=== PATIENT | female | born 1990 | race Caucasian/White ===

== ENCOUNTER 2022-01-16 17:34 | Emergency (ER) | payer SELFPAY ==
--- OUTSIDE RECORDS SUMMARY | 2022-01-16 17:38 | XMS REPORT | Continuity of Care Document ---
:1990 Author Organization [facility] t Address [address] [place] [address] Care Team Providers Name Role Phone Asked, No Pcp Primary Care Physician Unavailable Tyler Fitzgerald Attending Clinician Unavailable ORTIZ CURRY Attending Clinician Unavailable ORTIZ CURRY Attending Clinician Unavailable Brian Cannon Attending Clinician Unavailable Greg Peraza Admitting Clinician Unavailable Physician, No Primary or Family Admitting Clinician Unavaila ORTIZ Beauchamp Admitting Clinician Unavailable Payers Payer Name Policy Type Policy Number Effective Date Expiration Date S [facility] [place]ICAID PENDING PENDING 2021 00:00:00 Problems Condition Condition Condition Status Onset Resolution Last Treating Co mments Source Name Details Category Date Date Treatment Clinician Date Overweight Overweight Disease Active U nivers and and 3-24 ity of obesity obesity 00:00: [place] 00 Medical Branch Attention Attention Disease Active Overview: Univers deficit deficit 3-24 Formattin ity o f disorder disorder 00:00: g of this [place] 00 note Medical might be Branch different from the original. ICD10 Diagnosis Term [employer] Utility Other Other Disease Active Univers specified specified 3-24 it[place] [address] [place] [address] Allergies, Adverse Reactions, Alerts Allergy Allergy Status Severity Reaction(s) Onset Inactive Treating Comm ents Source Name Type Date Date Clinician No Known DA Active U [facility] Allergie 9-11 Clear s 00:00: [place] 00 [facility] No Known DA Active U [facility] Allergie 9-11 Clear s 00:00: [place] 00 [facility] No Known DA Active U [facility] Allergie 3-27 Clear s 00:00: [place] 00 [facility] NO KNOWN Drug Active Univers ALLERGIE Class ity of S [facility] Social History Social Habit Start Date Stop Date Quantity Comments Source ASSERTION [facility] Exposure to Not sure University SARS-CoV-2 (event) [facility] Alcohol intake 2018-01-26 2018-01-26 Current [facility] 00:00:00 00:00:00 non-drinker of Hospital alcohol (finding) Tobacco use and 2017-05-31 2017-05-31 Smokeless [facility] exposure 00:00:00 00:00:00 tobacco non-user Hospital Cigarettes smoked 2017-05-31 2017-05-[address] current (pack per 00:00:00 00:00:00 Hospita l ) - Reported History of tobacco 2017-04-24 Cigarette Smoker [facility] 00:00:00 Hospital Sex Assigned At [birth year] [facility] 00:00:00 00:00:00 Hospital Smoking Status Start Date Stop Date Source Unknown if [facility] Ex-smoker 2017-05-31 00:00:00 2017-05-31 00:00:00 [facility] Medications Ordered Filled Start Stop Current Ordering Indication Dosage Frequency Signature Comments Components Source Medication Medication Date Date Medication? Clinician (SIG) Name Name METHYLPREDN 2021-03 No ISOLONE 4MG 0-16 JORGE Tablets 00:00: 00 METHYLPREDN 2021-03 No ISOLONE 4MG 0-16 JORGE Tablets 00:00: 00 TAKE 2 PO Q 2021-03 No AM WHILE IN 0-12 [place] 00:00: PLACE DETOX 00 TAKE 2 PO Q 2021-03 No AM WHILE IN 0-12 [place] 00:00: PLACE DETOX 00 PER 2021-[address] 0-12 PLACE 00:00: PROTOCOL 00 PER 2021-[address] 0-12 PL[address] 00:00: PROTOCOL 00 rho(D) Yes 300ug 300 mcg, Univer s immune 03-31 Intramuscu ity of globulin 03:35: lar, ONCE, [place] as (RHOGAM) 12 For 1 Medical syringe 300 dose, Branch mcg Conditiona l, JANINE clindamycin 2021- No 300mg 300 mg, U nivers (CLEOCIN 03-31 Oral, ity of HCL) 03:15: 02:53 ONCE, 1 [place] capsule 300 00 :00 dose, On Medi diana mg Tue Branch 03/30/21 at 2115, JANINE
Re ason for Anti-Infec tive: Documented Infection< br>Documen jose manuel Infection Site: Wound
D uration of Therapy: 10 days<br&gt ;Restricte d use approved by: ED PROVIDER<b r>Indicati on for Clindamyci n use: cellulitis left forearm clindamycin 2021- No [id number] 300mg Take 1 Univers 300 mg 03-30 [id number] capsule by ity of capsule 00:00: 05:59 mouth 4 [place] 00 :00 (four) Medical times Branch daily for 10 days. traMADoL 50 2021- No 4647 50mg Take 1 Uni vers mg tablet 03-30 tablet by ity of 00:00: 05:59 mouth [place] 00 :00 every 6 Medical (six) Branch hours as needed for Pain (scale 4-6) for up to 7 days. Indication s: acute pain No known No No known Metho di medications 3-[address] 09:07: s [facility] l No known 2017- No No known Metho di medications 3-[address] 09:07: s [facility] l No known 2017- No No known Metho di medications 3-[address] 09:07: s [facility] l No known 2017- No No known Metho di medications 3-[address] 09:07: s [facility]ospita [facility] l STRATTERA 2004-0 Yes None Univers ORAL 3-24 Entered ity of 18:46: [place] 25 Medical Branch TYLENOL 2004-0 Yes None Univers ORAL 3-24 Entered ity of 18:46: [address] RITALIN 2004-0 Yes None Univers ORAL 3-24 Entered ity of 18:46: [address] CONCERTA 2004-0 Yes None Univers ORAL 3-24 Entered ity of 18:46: [address] MOTRIN ORAL 2004-0 Yes None Univer s 3-24 Entered ity of 18:46: [address] No known No Methodi medications [facility] Hospita l Vital Signs Vital Name Observation Time Observation Value Comments Source Systolic blood 2021-03-31 05:25:00 136 mm[Hg] Univer sity of pressure [facility] Diastolic blood 2021-03-31 05:25:00 86 mm[Hg] Unive rsity of pressure [facility] Heart rate 2021-03-31 05:25:00 88 /min [facility] Respiratory rate 2021-03-31 05:25:00 18 /min [facility] Oxygen saturation in 2021-03-31 05:25:00 98 /min [facility] Arterial blood by [facility] Pulse oximetry [place] Body temperature 2021-03-31 02:52:50 36.89 [facility] Body height 2021-03-30 22:35:00 165.1 cm [facility] Body weight 2021-03-30 22:35:00 58.968 kg [facility] BMI 2021-03-30 22:35:00 21.63 kg/m2 [facility] BP Systolic 2022-01-12 10:48:00 118 mm[Hg] BP Diastolic 2022-01-12 10:48:00 86 mm[Hg] Weight Measured 2022-01-12 10:48:00 140.00 pounds Height Measured 2022-01-12 10:48:00 65.00 inches Body Temperature 2022-01-12 10:48:00 98.00 degrees Heart Rate 2022-01-12 10:48:00 105.00 /min Respiratory Rate 2022-01-12 10:48:00 18.00 /min Body Temperature 2022-01-05 10:50:00 98.30 degrees Heart Rate 2022-01-05 10:50:00 82.00 /min Respiratory Rate 2022-01-05 10:50:00 18.00 /min BP Systolic 2022-01-05 10:50:00 107 mm[Hg] BP Diastolic 2022-01-05 10:50:00 72 mm[Hg] Weight Measured 2022-01-05 10:50:00 135.00 pounds Height Measured 2022-01-05 10:50:00 65.00 inches BP Systolic 2021-12-29 12:17:00 100 mm[Hg] BP Diastolic 2021-12-29 12:17:00 75 mm[Hg] Weight Measured 2021-12-29 12:17:00 120.00 pounds Height Measured 2021-12-29 12:17:00 65.00 inches Body Temperature 2021-12-29 12:17:00 97.40 degrees Heart Rate 2021-12-29 12:17:00 99.00 /min Respiratory Rate 2021-12-29 12:17:00 16.00 /min Procedures Procedure Date / Time Performing Clinician Source Performed ABORH CONFIRMATION (LAB 2021-03-31 04:42:00 Ortiz Curry [facility] ONLY) [facility] HB -MATERNAL 2021-03-31 03:42:00 Patricio [facility] HEMORRHAGE SCREEN [facility] HB ABO GROUPING 2021-03-31 02:48:00 Patricio [facility] COMP. METABOLIC PANEL 2021-03-31 02:02:00 Ortiz Curry [facility] ([id number]) [facility] TOTAL BETA HCG ASSAY 2021-03-31 02:02:00 Ortiz Curry [facility] CBC WITH DIFF 2021-03-31 02:02:00 Patricio [facility] URINALYSIS 2021-03-31 01:02:00 Patricio [facility] URINE DRUG (IMMUNOASSAY) 2021-03-31 01:02:00 Ortiz Curry [facility] Medical [facility] nch SCREEN W/O REFLEX US FIRST 2021-03-31 00:56:11 Patricio Ortiz [facility] TRIMESTER LESS THAN 14 Medical B ranch WEEKS WITH TRANSVAGINAL XR FOREARM 2 VW RIGHT 2021-03-30 23:44:55 Ortiz Curry [facility] CONSENT/REFUSAL FOR 2021-03-30 22:26:58 Doctor Unassigned, No [facility] [place] DIAGNOSIS AND TREATMENT Name [facility] Plan of Care Planned Activity Planned Date Details Comments Source Goal Plan of Care Note [code = 80035-7] Goal Plan of Care Note [code = 88645-4] Goal Plan of Care Note [code = 84625-4] Goal Plan of Care Note [code = 20194-2] Goal Plan of Care Note [code = 42101-8] Goal Plan of Care Note [code = 05238-9] Goal Plan of Care Note [code = 59337-5] Goal Plan of Care Note [code = 89144-1] Goal Plan of Care Note [code = 16604-6] Goal Plan of Care Note [code = 65567-4] Goal Plan of Care Note [code = 40204-6] Goal Plan of Care Note [code = 09917-0] Goal Plan of Care Note [code = 15880-5] Goal Plan of Care Note [code = 75836-7] Goal Plan of Care Note [code = 43344-4] Goal Plan of Care Note [code = 13214-2] Goal Plan of Care Note [code = 07094-5] Encounters Start End Encounter Admission Attending Care Care Encounter Source Date/Time Date/Time Type Type Clinicians Facility Department ID 2022-01-12 2022-01-12 Outpatient S[facility] [id number] Raul 10:41:40 10:41:40 F Sam 2022-01-12 2022-01-12 [facility] [id number] 00:00:00 00:00:00 Visit [id number] 2022-01-05 2022-01-05 Outpatient SFA SFA [id number] Raul 08:52:29 08:52:29 F Sam 2022-01-05 2022-01-05 Outpatient SFADOCS SF[facility] [id number] 00:00:00 00:00:00 Visit [id number] 2021-10-22 2021-10-22 Emergency EM Tyler Fitzgerald [facility] SEVEN [id number] [facility] 09:01:00 12:16:00 95 [facility] 2021-10-22 2021-10-22 Emergency Tyler Garza [facility] [id number] [facility] 09:01:00 09:01:00 [id number] [facility] 2021-03-30 2021-03-31 Emergency X ORTIZ CURRY [facility] ERT [id number] Univers 17:06:00 01:43:00 ORTIZ CURRY ity [facility] 2021-03-30 2021-03-31 Emergency Patricio [facility] [id number] Univers 17:06:00 01:43:00 [facility] Envia Lá [id number] it y of CLEAR [id number] [facility] [place] [id number] [address] ([facility]) 2020-10-21 2020-10-21 Emergency ARNIE Goodwin SEVEN [id number] [facility] 17:20:00 21:57:00 Brian 43 [facility] Results Test Description Test Time Test Comments Results Result Comments Source ABORH Confirmation (Lab Only) 2021-03-31 05:02:07 Test Item Value Reference Range Interpretation Comme nts ABO & RH (test code = 20) A Negative Pe rformed at [facility] Laboratory Services - [facility] [address] [place], [place] [address]Brld Free: [phone] No. [id number] [facility] MATERNAL HEMO [id number] 04:53:06 Test Item Value Reference Range Interpretation Comments SCREEN (test Negative Performed at [facility] code = 846) Laboratory Serv [facility] - [facility] Blood [address] [place], [place] [address]Toll Free: [phone] 266CLIA No. [id number] RHIG REQUIRED? (test 1 Syringe Perform ed at [facility] code = 1747) Laboratory Serv ice - [facility] [address] [place], [place] [address] 4Toll Free: [phone] 266CLIA No. [id number] [facility] DallasType and Screen - ONCE [id number] 03:37:42 Test Item Value Reference Range Interpretation Comments ABO & RH (test code A Negative Performe d at [facility] = 20) Laboratory Serv [facility] [employer] Blood [address] [place], [place] [address] 4Toll Free: [phone] 266CLIA No. [id number] IAT (test code = Negative Performed a t [facility] 1185) Laboratory Serv [facility] [address] [place], [place] [address] 4Toll Free: [phone] 266CLIA No. [id number] [facility] Dallas[facility]OTAL BETA HCG [id number] 02:49:47 Test Item Value Reference Range Interpretation Comments BETA HCG (test See_Comment [Automated m essage] code = The system [employer] [id number]) generated this result transmit jose manuel reference range : Non- fe male and male patien ts: <5 mIU/mL. The reference range was not used to interpret this result as normal/abnormal . MARZENA (test code Gestational Age ? ? = MARZENA) ?Range (mIU/mL) 1-10 ?Weeks ?[id number] Weeks ?63204-39004691-26 Weeks ?0834-47843179-61 Weeks ?5845-694345 Biotin has been reported to cause a negative bias, interpret results relative to patient's use of biotin. [facility]. METABOLIC PANEL (81952)2021-03-31 02:24:16 Test Item Value Reference Range Interpretation Comments NA (test code = 140 mmol/L 135-145 3508217656) K (test code = 4.0 mmol/L 3.5-5.0 Slight 4841817968) hemolysis CL (test code = 107 mmol/L 98-108 2771229751) CO2 TOTAL (test code 21 mmol/L 23-31 L = 5216743773) AGAP (test code = 2-16 4503667827) BUN (test code = 13 mg/dL 7-23 Slight 6029399178) hemolysis GLUCOSE (test code = 94 mg/dL 70-110 9092275536) CREATININE (test code 0.59 mg/dL 0.50-1.04 = 5064320330) TOTAL BILI (test code 0.6 mg/dL 0.1-1.1 = 8044291371) CALCIUM (test code = 8.9 mg/dL 8.6-10.6 0085790093) T PROTEIN (test code 7.6 g/dL 6.3-8.2 = 0673145567) ALBUMIN (test code = 4.1 g/dL 3.5-5.0 7193710474) ALK PHOS (test code = 73 U/L 34-122 Slight 8745648468) hemolysis ALTv (test code = 15 U/L 5-35 1742-6) AST(SGOT) (test code 27 U/L 13-40 Slight = 9009147754) hemolysis eGFR (test code = mL/min/1.73m2 8416629510) MARZENA (test code = MARZENA) Association of Glomerular Filtration Rate (GFR) and Staging of Kidney Disease* + -----+ --------+ +| GFR (mL/min/1.73 m2) ?| With Kidney Damage ?| ?Without Kidney Damage+ +------- +---- --+| ?>90 ?| ?Stage one ?| ? Normal ?+ ------+ ---------+--------- +| ?60-89 ?| ?Stage two ?| ? Decreased GFR ? + -----+ --------+ +| ?30-59 ?| ?Stage three ?| ? Stage three ? + -----+ --------+ +| ?15-29 ?| ?Stage four ? | ? Stage four ?+ ------+ ---------+--------- +| ?<15 (or dialysis) ? ?| ?Stage five ? | ? Stage five ?+ ------+ ---------+--------- + *Each stage assumes the associated GFR level has been in effect for at least three months. ?Stages 1 to 5, with or without kidney disease, indicate chronic kidney disease. Notes: Determination of stages one and two (with eGFR >59mL/min/1.73 m2) requires estimation of kidney damage for at least three months as defined by structural or functional abnormalities of the kidney, manifested by either:Pathological abnormalities or Markers of kidney damage (including abnormalities in the composition of the blood or urine or abnormalities in imaging tests). Lab Interpretation Abnormal (test code = 57577-0) [facility] WITH [id number] 02:10:50 Test Item Value Reference Range Interpretation Comments WBC (test code = See_Comment [Automated message] 6690-2) The system [employer] generated this result transmitted ref erence range: 4.30 - 1 1.10 10*3/?L. The re ference range was not u sed to interpret this result as normal/abnor mal. RBC (test code = See_Comment [Automated message] 789-8) The system [employer] generated this result transmitted ref erence range: 3.93 - 5 .25 10*6/?L. The re ference range was not u sed to interpret this result as normal/abnor mal. HGB (test code = 12.2 g/dL 11.6-15.0 718-7) HCT (test code = 38.4 % 35.7-45.2 4544-3) MCV (test code = 84.2 fL 80.6-95.5 787-2) MCH (test code = 26.8 pg 25.9-32.8 785-6) MCHC (test code = 31.8 g/dL 31.6-35.1 786-4) RDW-SD (test code 42.5 fL 39.0-49.9 = 35640-9) RDW-CV (test code 13.8 % 12.0-15.5 = 788-0) PLT (test code = See_Comment [Automated message] 777-3) The system [employer] generated this result transmitted ref erence range: 166 - 35 8 10*3/?L. The re ference range was not u sed to interpret this result as normal/abnor mal. MPV (test code = 10.3 fL 9.5-12.9 07997-0) NRBC/100 WBC (test See_Comment [Automat ed message] code = 0820946895) The syste m which generated this result transmitted ref erence range: 0.0 - 10 .0 /100 WBCs. The refer ence range was not u sed to interpret this result as normal/abnor mal. NRBC x10^3 (test <0.01 See_Comment [Automated message] code = 5810147566) The syste m which generated this result transmitted ref erence range: 10*3/?L. The reference range was not used to interpr et this result as normal/abnormal . GRAN MAT (NEUT) % 71.2 % (test code = 770-8) IMM GRAN % (test 0.40 % code = 2022327326) LYMPH % (test code 18.1 % = 736-9) MONO % (test code 8.1 % = 5905-5) EOS % (test code = 1.9 % 713-8) BASO % (test code 0.3 % = 706-2) GRAN MAT 6.42 10*3/uL 1.88-7.09 x10^3(ANC) (test code = 9552889699) IMM GRAN x10^3 0.04 10*3/uL 0.00-0.06 (test code = 1795569688) LYMPH x10^3 (test 1.63 10*3/uL 1.32-3.29 code = 731-0) MONO x10^3 (test 0.73 10*3/uL 0.33-0.92 code = 742-7) EOS x10^3 (test 0.17 10*3/uL 0.03-0.39 code = 711-2) BASO x10^3 (test 0.03 10*3/uL 0.01-0.07 code = 704-7) [facility] 2019 [facility] [id number] 18:32:00 Test Item Value Reference Range Interpretation Comments Coronavirus 2019 POSITIVE Negative A Critical re sult called to [facility] Bedside (test Tyler CALVILLOLAB.EE code = at 1832 1Nurse read [id number]) back result an d tech confirmed it's correct? YNegative resul ts should be treated as pres umptive and, ifinconsistent with clinical signs and symptoms or necessaryfor patient management, gigi uld be tested with an alternativemole cular assay. Negative result s do not preclude FUQD-MfV-7qhbcm tion and should not be u sed as the sole basis forp atient management deci sions. Negative result s should beconsidered in the context of a patient's recent exposures,histo ry, presence of clinical sig ns and symptoms consis tentwith COVID-19. - XR CHEST 1 [id number] 00:00:[address] [facility] : 1990 Sex: F FAX: Brian Cannon MD [phone] [place]: St: REG FAX: Greg Romano MD [phone] Name: YISEL KHAN [facility] : 1990 Age/S: 30/F [address] [place] [address] Unit #: [id number] Loc: [place] [address] Phys: Brian Cannon MD Acct: [id number] Dis Date: Status: REG ER PHONE #: [phone] ExamDate: 10/21/2020 1828 FAX #: [phone] Reason: BOBO / CP / loss of taste/smell EXAMS: CPT CODE: [id number] XR CHEST 1 V 53096 PROCEDURE INFORMATION: Exam: XR Chest Exam date and time: 10/21/2020 6:00 PMAge: 30 years old Clinical indication: Pain; Chest pressure; Additional info: BOBO / cp / loss of taste/smell TECHNIQUE: Imaging protocol: XR of the chest. Views: 1 view. COMPARISON: No relevant prior studies available. FINDINGS: Lungs: Mild decreased lung volumes. No consolidation. Pleural spaces: No pleural effusion. No pneumothorax. Heart/Mediastinum: Heart size is within normal limits. Vasculature is unremarkable. Bones/joints: No acute osseous abnormalities. IMPRESSION: No acute cardiopulmonary findings. at 1837 Reported and signed by: Justyn Alvarez M.D. CC: Brian Cannon MD; Greg Peraza MD Technologist: Mikayla Thompson, RT(R); Katlyn Teague RT(R) Trnscrd Date/Time/By: 10/21/2020 (926) : By: [email or web address] Orig Print D/T: S: 10/21/2020 (7748) PAGE 1 Signed Report"
--- NOTE | 2022-01-16 19:29 | EDPHYS ---
Physician Documentation [facility] Name: Adeline Khan Age: 31 yrs Sex: Female : 1990 Arrival Date: 01/16/2022 Time: 17:35 Bed DIS3 Private MD: ED Physician Preston Weldon HPI: 01/16 19:00 This 31 yrs old Female presents to ER via Ambulatory with complaints of Fever, Ear Pain.kb 19:01 The patient presents with pain, moderate. The complaints affect the left ear. Onset: kb The symptoms/episode began/occurred 4 day(s) ago. Modifying factors: The symptoms are alleviated by nothing, the symptoms are aggravated by nothing. Associated signs and symptoms: Pertinent positives: fever. Severity of symptoms: At their worst the symptoms were moderate in the emergency department the symptoms are unchanged. The patient has not experienced similar symptoms in the past. The patient has not recently seen a physician. Pt reports left ear pain, slight congestion and cough, fever and bodyaches for 4 days. Historical: - Allergies: 17:45 No Known Allergies; ll1 - PMHx: 17:45 None; ll1 - PSHx: 17:45 section; ll1 - Immunization history:: Client reports having NOT received the Covid vaccine. - Social history:: Smoking status: Patient reports the use of cigarette tobacco products, denies chronic smoking, but will smoke occasionally, Reported history of juuling and/or vaping. ROS: 18:59 Abdomen/GI: Negative for abdominal pain, nausea, vomiting, diarrhea, and constipation. kb 18:59 Constitutional: Positive for body aches, chills, fever. 18:59 ENT: Positive for ear pain. 18:59 All other systems are negative. Exam: 18:59 Constitutional: This is a well developed, well nourished patient who is awake, alert, kb and in no acute distress. Head/Face: Normocephalic, atraumatic. ENT: Moist Mucous membranes Cardiovascular: Regular rate and rhythm with a normal S1 and S2. No gallops, murmurs, or rubs. No pulse deficits. Respiratory: Respirations even and unlabored. No increased work of breathing. Talking in full sentences Abdomen/GI: Soft, non-tender. No distention Skin: Warm, dry with normal turgor. Normal color. MS/ Extremity: Pulses equal, no cyanosis. Neurovascular intact. Full, normal range of motion. Neuro: Awake and alert, GCS 15, oriented to person, place, time, and situation. Moves all extremities. Normal gait. 18:59 ENT: External ear(s): are unremarkable, Ear canal(s): are normal, TM's: are normal, Posterior pharynx: is normal. Vital Signs: 17:45 BP 107 / 72; Pulse 102; Resp 17; Temp 98.5; Pulse Ox 95% ; Weight 58.97 kg; Height 5 ll1 ft. 5 in. (165.10 cm); Pain 8/10; 17:45 Body Mass Index 21.63 (58.97 kg, 165.10 cm) ll1 MDM: 18:16 Patient medically screened. kb 18:59 Data reviewed: vital signs, nurses notes. Data interpreted: Pulse oximetry: on room air kb is 95 %. Interpretation: normal. Counseling: I had a detailed discussion with the patient and/or guardian regarding: the historical points, exam findings, and any diagnostic results supporting the discharge/admit diagnosis, lab results, the need for outpatient follow up, a family practitioner, to return to the emergency department if symptoms worsen or persist or if there are any questions or concerns that arise at home. 01/16 18:17 Order name: Flu kb 01/16 18:17 Order name: COVID-19 SARS RT PCR (Document "Date of Onset" if Symptomatic) kb 01/16 18:59 Order name: SARS-COV-2 RT PCR EDMS 01/16 19:05 Order name: Influenza Screen (A EDMS Administered Medications: No medications were administered Disposition: 01/17 14:15 Co-signature as Attending Physician, Preston Weldon MD I agree with the assessment and kdr plan of care. Disposition Summary: 01/16/22 19:29 Discharge Ordered Location: Home kb Condition: Stable kb Diagnosis - Otalgia, left ear kb - Fever, unspecified kb Followup: kb - With: Emergency Department - When: As needed - Reason: Worsening of condition Followup: kb - With: Private Physician - When: 2 - 3 days - Reason: Recheck today's complaints, Continuance of care, Re-evaluation by your physician Discharge Instructions: - Discharge Summary Sheet kb - Earache, Adult kb - Fever, Adult, [id number] kb Forms: - Medication Reconciliation Form kb - Thank You Letter kb - Antibiotic Education kb - Prescription Opioid Use kb Signatures: Dispatcher [employer] EDLeigh Hermosillo, FIELD IRRIGATION WORKER-C FIELD IRRIGATION WORKER-Preston Lugo MD MD kdr Lewis, Lynsay RN RN ll1 Corrections: (The following items were deleted from the chart) 01/16 19:00 18:59 ENT: External ear(s): are unremarkable, Ear canal(s): are normal, TM's: are kb normal, kb
--- NOTE | 2022-01-16 19:29 | ER ---
Nurse's Notes [facility] Name: Adeline Khan Age: 31 yrs Sex: Female : 1990 Arrival Date: 01/16/2022 Time: 17:35 Bed DIS3 Private MD: Diagnosis: Otalgia, left ear;Fever, unspecified Presentation: 01/16 17:45 Chief complaint: Patient states: L ear pain and fever for 4 days. Coronavirus screen: ll1 Vaccine status: Patient reports being unvaccinated. Client denies travel out of the [place] in the last 14 days. fever, headache, Client presents with at least one sign or symptom that may indicate coronavirus-19. Standard/surgical mask placed on the client. Ebola Screen: Patient denies travel to an Ebola-affected area in the 21 days before illness onset. Initial Sepsis Screen: Does the patient meet any 2 criteria? HR > 90 bpm. No. Patient's initial sepsis screen is negative. Does the patient have a suspected source of infection? Yes: Other: L ear. Risk Assessment: Do you want to hurt yourself or someone else? Patient reports no desire to harm self or others. Onset of symptoms was January 13, 2022. 17:45 Method Of Arrival: Ambulatory ll1 17:45 Acuity: SHERIN 4 ll1 Triage Assessment: 20:03 General: Appears in no apparent distress. Behavior is calm. Pain: Denies pain. EENT: No tw5 deficits noted. Historical: - Allergies: 17:45 No Known Allergies; ll1 - PMHx: 17:45 None; ll1 - PSHx: 17:45 section; ll1 - Immunization history:: Client reports having NOT received the Covid vaccine. - Social history:: Smoking status: Patient reports the use of cigarette tobacco products, denies chronic smoking, but will smoke occasionally, Reported history of juuling and/or vaping. Screenin:03 Abuse screen: Denies threats or abuse. Denies injuries from another. Nutritional tw5 screening: No deficits noted. Tuberculosis screening: No symptoms or risk factors identified. Fall Risk None identified. Vital Signs: 17:45 BP 107 / 72; Pulse 102; Resp 17; Temp 98.5; Pulse Ox 95% ; Weight 58.97 kg; Height 5 ll1 ft. 5 in. (165.10 cm); Pain 8/10; 17:45 Body Mass Index 21.63 (58.97 kg, 165.10 cm) ll1 ED Course: 17:35 Patient arrived in ED. am2 17:46 Triage completed. ll1 17:46 Arm band placed on. ll1 17:53 Leigh Moyer FNP-C is [facility]. kb 17:53 Preston Weldon MD is Attending Physician. kb 19:54 Sandra Marie is Primary Nurse. tw5 20:03 Patient has correct armband on for positive identification. tw5 Administered Medications: No medications were administered Outcome: 19:29 Discharge ordered by . kb 20:04 Patient left the ED. tw5 Signatures: Leigh Moyer FNP-C FNP-Marina Hernandez am2 Juan A Rivers, RN RN 1 Sandra Marie tw5
[2022-01-16 20:28] VITALS: BP 107/72; TEMP 98.5; O2SAT 95
== END 2022-01-16 20:04 | disposition home or self-care (01) ==
LOC: ER 17:34
DX: R50.9 Fever, unspecified (principal); H92.02 Otalgia, left ear; F17.210 Nicotine dependence, cigarettes, uncomplicated
CPT/HCPCS: 87804; 99281; U0003